=== PATIENT | male | born 1970 | race Caucasian/White ===

== ENCOUNTER 2018-12-26 09:41 | Inpatient (IN) | payer OTHER ==
[~2018-12-26] VITALS: Ht 185.4 cm; Wt 120.0 kg
[~2018-12-26 09:41] MED LIST: METH10TA2 PO
[2018-12-26 09:43] VITALS: Ht 185.4 cm; Wt 120.0 kg
--- NOTE | 2018-12-26 10:26 | ERD ---
ER Documentation Chief Complaint Chief Complaint SENT BY DR ANTOINE ORTHO FOR ADMISSION HPI Patient sent in by orthopedic Dr. Stephenson for admission for ORIF of right elbow after patient fell off a ladder and fractured it. Patient has been ambulatory with no altered mental status no bowel or bladder incontinence and pain has been controlled. Patient is already splinted and Dr. Stephenson's office. ROS All systems reviewed and are negative except as per history of present illness. PMhx/Soc Medical and Surgical Hx: pt denies Medical Hx, pt denies Surgical Hx Physical Exam Vitals Vital Signs Date Temp Pulse Resp B/P (MAP) Pulse Ox O2 O2 Flow FiO2 Time Delivery Rate 12/26/18 98.1 80 18 154/67 99 09:43 (96) Physical Exam Const: No acute distress Head: Atraumatic Eyes: Normal Conjunctiva ENT: Normal External Ears, Nose and Mouth. Neck: Full range of motion. No meningismus. Resp: Clear to auscultation bilaterally Cardio: Regular rate and rhythm, no murmurs Abd: Soft, non tender, non distended. Normal bowel sounds Skin: No petechiae or rashes Back: No midline or flank tenderness Ext: No cyanosis, or edema. Right upper extremity splinted in sugar tong cap Refill less than 2 seconds, moving all fingers Neur: Awake and alert Psych: Normal Mood and Affect Procedures/MDM Patient with fracture splinted in sugar tong neurovascularly intact will admit to Dr. Stephenson for ORIF. Patient is imminently stable no other acute issues. Departure Diagnosis: Primary Impression: Injury of upper extremity Condition: Stable CLAUDETTE GUTIERREZ MD Dec 26, 2018 10:26
[2018-12-26] MEDS ORDERED: SENNA/DOCUSATE NA (8.6MG/50MG) TAB PO PRN (10:30)
[2018-12-26] MEDS ORDERED: DOCUSATE SODIUM 100 MG CAP PO ONE (10:30)
[2018-12-26] MEDS ORDERED: MAGNESIUM HYDROXIDE 30ML CUP PO PRN (10:30)
[2018-12-26] MEDS ORDERED: DIPHENHYDRAMINE 50 MG INJ IV PRN (10:30)
[2018-12-26] MEDS ORDERED: NA PHOSPHATE/BIPHOS 133 ML ENEMA PR PRN (10:30)
[2018-12-26] MEDS ORDERED: BISACODYL 10 MG SUPP PR PRN (10:30)
[2018-12-26] MEDS ORDERED: NALOXONE (0.4 MG/ML) INJ IV PRN (10:30)
[2018-12-26] MEDS ORDERED: NACL 0.9% 3 ML SYG IV SCH (10:30)
--- NOTE | 2018-12-26 11:30 | HP ---
Date/Time of Note Date/Time of Note DATE: 12/26/18 TIME: 11:23 Assessment/Plan VTE Prophylaxis Pharmacological prophylaxis: NA/contraindicated Pharm contraindication: low risk/ambulating Lines/Catheters IV Catheter Type (from Nrs): Saline Lock Assessment/Plan Assessment/Plan 48-year-old male with right olecranon fracture x1 week. Given that this is intra-articular my recommendation to the patient is to undergo open reduction internal fixation as nonoperative treatment would require significant immobilization resulting in stiffness and long-term disability of the right upper extremity. Reviewed the benefits and risks with the patient including but not limited to medical comp occasions, anesthetic complications, bleeding, infection, malunion, nonunion, hardware failure, neurovascular injury, tendon and muscle injury, need to remove hardware, need for revision surgery. He understood these and wished to proceed with surgery. Admit to the hospital for preoperative optimization and clearance Patient is scheduled Friday at 7:30 for open reduction internal fixation of the right olecranon fracture Nonweightbearing right upper extremity Sling to right upper extremity Pain control N.p.o. at midnight HPI/ROS Admit Date/Time Admit Date/Time Hx of Present Illness 48-year-old male who fell 1 week ago 8 feet from a ladder and sustained a isolated injury to his right elbow. He was found to have a right olecranon fracture. He was seen in another ED about a week ago placed in a splint. He is now here for admission for planning open reduction internal fixation of his right olecranon fracture. Denies numbness and tingling. Denies pain elsewhere. Denies previous injury to this elbow. 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 PMH/Family/Social Past Medical History Medical History: no pertinent history Medications Current Medications Pantoprazole (Protonix Tab) 40 mg DAILY@06 PO ; Start 12/27/18 at 06:00; Status UNV Docusate Sodium (Colace) 200 mg ONCE ONCE PO ; Start 12/26/18 at 10:30; Stop 12/26/18 at 10:31; Status UNV Docusate Sodium (Colace) 200 mg BID PO ; Start 12/27/18 at 09:00; Stop 12/29/18 at 21:01; Status UNV Simethicone (Mylicon) 80 mg TID PRN PO .GAS; Start 12/26/18 at 10:30; Status UNV Senna/Docusate Sodium (Senokot-S) 2 tab BID PRN PO .CONSTIPATION; Start 12/26/18 at 10:30; Status UNV Magnesium Hydroxide (Milk Of Mag) 30 ml HS PRN PO .CONSTIPATION; Start 12/26/18 at 10:30; Status UNV Bisacodyl (Dulcolax Supp) 10 mg DAILY PRN [place] .CONSTIPATION; Start 12/26/18 at 10:30; Status UNV Sodium Biphosphate/ Sodium Phosphate (Fleet Enema) 133 ml DAILY PRN [place] .CONSTIPATION; Start 12/26/18 at 10:30; Status UNV Diphenhydramine HCl (Benadryl) 25 mg Q4H PRN IV .ITCHING; Start 12/26/18 at 10:30; Status UNV Naloxone HCl (Narcan) 0.2 mg Q2M PRN IV .RESP RATE; Start 12/26/18 at 10:30; Status UNV IV Flush (NS 3 ml) 3 ml per protocol IV ; Start 12/26/18 at 10:30; Status UNV Potassium Chloride/Dextrose/ Sod Cl 1,000 ml @ 100 mls/hr Q10H IV ; Start 12/27/18 at 00:00; Status UNV Coded Allergies: No Known Allergy (Unverified , 12/26/18) Past Surgical History Past Surgical Hx: noncontributory Social History Smoking Status: Current every day smoker (1-2 cig/day) Drug Use: none Exam/Review of Systems Vital Signs Vitals Vital Signs Date Temp Pulse Resp B/P (MAP) Pulse Ox O2 O2 Flow FiO2 Time Delivery Rate 12/26/18 98.1 80 18 154/67 99 09:43 (96) Exam Exam General: Awake, alert, in no acute distress, pleasant and cooperative Heart: regular rhythm Lungs: breathing comfortably, no tachypnea or dyspnea MUSCULOSKELETAL: Right upper extremity: Posterior slab splint removed. Skin intact. There is swelling and mild ecchymosis about the elbow. There is tenderness palpation over the olecranon. There is no tenderness palpation along the shoulder humerus forearm wrist or hand. Sensation intact to light touch in a median, ulnar, radial, and axillary distribution. Motor is intact in a median, ulnar, radial, anterior interosseous, and posterior interosseous nerve distribution. Radial and ulnar artery are +2. Wrist extension and flexion are intact. Compartments are soft. Additional Comments Outside x-rays of the right elbow were reviewed. These are dated 12/25/2018. 3 views of the right elbow demonstrate acute fracture of the olecranon. The fracture is intra-articular. Relatively good congruency of the joint. The joint is reduced. Mild comminution GALO OROZCO MD Dec 26, 2018 11:30
[2018-12-26 12:22] VITALS: BP 139/75; PULSE 58; RESP 20
[2018-12-26] MEDS: HYDROCODONE/APAP (5/325) TAB PO PRN ×2 (12:41→18:05)
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
[2018-12-26] MEDS ORDERED: HYDROCODONE/APAP (10/325) TAB PO PRN (13:30)
[2018-12-26] MEDS ORDERED: morphine 2 MG INJ IV PRN (14:00)
[2018-12-26] MEDS: KETOROLAC 15 MG INJ IV PRN (16:14)
[2018-12-26 19:25] VITALS: BP 147/91; PULSE 71; RESP 18
[2018-12-27] VITALS (18 sets, daily range): BP systolic 123–156; BP diastolic 65–84; PULSE 56–90; RESP 12–21
[2018-12-27] MEDS: D5W-0.45 NACL + KCL 20 MEQ 1,000 ML IV SCH ×2 (01:04→10:00)
[2018-12-27] MEDS: PANTOPRAZOLE (EC) 40 MG TAB PO SCH (05:28)
--- NOTE | 2018-12-27 07:25 | HPN ---
Date/Time of Note Date/Time of Note DATE: 12/27/18 TIME: 07:24 Interval H&P Admission Note Pt. seen H&P reviewed: No system changes Patient denies fever, chills, shortness of breath, chest pain, nausea/vomiting, constipation, diarrhea, numbness, and tingling. MUSCULOSKELETAL: Right upper extremity: Skin intact Sensation intact to light touch in a median, ulnar, radial, and axillary distribution. Motor is intact in a median, ulnar, radial, anterior interosseous, and posterior interosseous nerve distribution. Radial and ulnar artery are +2. Wrist extension and flexion are intact. Compartments are soft. GALO OROZCO MD Dec 27, 2018 07:25
--- NOTE | 2018-12-27 07:31 | PREAC ---
Date/Time of Note Date/Time of Note DATE: 12/27/18 TIME: 07:30 Anesthesia Eval and Record Evaluation Time Pre-Procedure Interview DATE: 12/27/18 TIME: 07:15 Age 48 Sex male NPO: 8 hrs Preoperative diagnosis left elbow fracture Planned procedure orif left elbow fx Past Medical History Past Medical History: None Surgery & Anesthesia Issues No known issue Meds Anticoagulation: No Beta Odalys within 24 hr: No Reason Beta Odalys not given: Pt. not on B-Odalys Reported Medications Methadone Hcl* (Methadone*) 10 Mg Tab, 10 MG PO DAILY, TAB 12/26/18 Current Medications Pantoprazole (Protonix Tab) 40 mg DAILY@06 PO Last administered on 12/27/18at 05:28; Admin Dose 40 MG; Start 12/27/18 at 06:00 Docusate Sodium (Colace) 200 mg BID PO ; Start 12/27/18 at 09:00; Stop 12/29/18 at 21:01 Simethicone (Mylicon) 80 mg TID PRN PO .GAS; Start 12/26/18 at 10:30 Senna/Docusate Sodium (Senokot-S) 2 tab BID PRN PO .CONSTIPATION; Start 12/26/18 at 10:30 Magnesium Hydroxide (Milk Of Mag) 30 ml HS PRN PO .CONSTIPATION; Start 12/26/18 at 10:30 Bisacodyl (Dulcolax Supp) 10 mg DAILY PRN [place] .CONSTIPATION; Start 12/26/18 at 10:30 Sodium Biphosphate/ Sodium Phosphate (Fleet Enema) 133 ml DAILY PRN [place] .CONSTIPATION; Start 12/26/18 at 10:30 Diphenhydramine HCl (Benadryl) 25 mg Q4H PRN IV .ITCHING; Start 12/26/18 at 10:30 Naloxone HCl (Narcan) 0.2 mg Q2M PRN IV .RESP RATE; Start 12/26/18 at 10:30 IV Flush (NS 3 ml) 3 ml per protocol IV ; Start 12/26/18 at 10:30 Potassium Chloride/Dextrose/ Sod Cl 1,000 ml @ 100 mls/hr Q10H IV Last administered on 12/27/18at 01:04; Admin Dose 100 MLS/HR; Start 12/27/18 at 00:00 Acetaminophen/ Hydrocodone Bitart ([place] (5/325)) 1 tab Q4H PRN PO MODERATE PAIN LEVEL 4-6 Last administered on 12/26/18at 18:05; Admin Dose 1 TAB; Start 12/26/18 at 12:35 Ketorolac Tromethamine (Toradol) 15 mg Q6H PRN IV MILD PAIN LEVEL 1-3 Last administered on 12/26/18at 16:14; Admin Dose 15 MG; Start 12/26/18 at 13:30; Stop 12/29/18 at 13:29 Acetaminophen/ Hydrocodone Bitart ([place] (10325)) 1 tab Q4H PRN PO SEVERE PAIN LEVEL 7-10 Last administered on 12/27/18at 01:06; Admin Dose 1 TAB; Start 12/26/18 at 13:30 Morphine Sulfate (morphine) 2 mg Q4H PRN IV SEVERE PAIN LEVEL 7-10; Start 12/26/18 at 14:00 Meds reviewed: Yes Allergies Coded Allergies: No Known Allergy (Unverified , 12/26/18) Allergies Reviewed: Yes Labs/Studies Labs Reviewed: Reviewed by anesthesiologist Result Diagram: 12/27/18 0458 12/27/18 0458 Laboratory Tests 12/27/18 04:58 test: N/A Pre-procedure Exam Last vitals Vital Signs Date Temp Pulse Resp B/P (MAP) Pulse Ox O2 O2 Flow FiO2 Time Delivery Rate 12/27/18 98.2 59 14 156/71 97 Room Air 07:13 (99) Airway: Adequate mouth opening, Adequate thyromental dist Mallampati: Mallampati II Teeth: Normal Lung: Normal Heart: Normal ASA Physical Status ASA physical status: 1 Emergency: None Planned Anesthetic General/MAC: LMA Nerve block: Brachial plexus (left) Planned Pain Management Single shot nerve block, Parenteral pain med Pre-operative Attestations Prior to commencing anesthesia and surgery, the patient was re-evaluated, there was verification of: *The patient's identity *The results of appropriate recent lab work and preoperative vital signs *The above evaluation not changing prior to induction *Anesthetic plan, risk benefits, alternative and complications discussed with patient/family; questions answered; patient/family understands, accepts and wishes to proceed. JOSE ANTONIO RIOS Dec 27, 2018 07:31
[2018-12-27] MEDS ORDERED: BUPIVACAINE 0.5% (SDV) 30 ML INJ ONE (07:41)
[2018-12-27] MEDS: DOCUSATE SODIUM 100 MG CAP PO SCH ×2 (07:49→19:45)
[2018-12-27] MEDS ORDERED: ROCURONIUM 50 MG INJ ONE (08:21)
[2018-12-27] MEDS ORDERED: LIDOCAINE 2% (SDV) 5 ML INJ ONE (08:21)
[2018-12-27] MEDS ORDERED: ONDANSETRON 4 MG INJ ONE (08:22)
[2018-12-27] MEDS ORDERED: DEXAMETHASONE 4 MG/ML 5 ML INJ ONE (08:22)
[2018-12-27] MEDS ORDERED: PROPOFOL 20 ML ONE (08:22)
[2018-12-27] MEDS ORDERED: CEFAZOLIN 1 GM INJ ONE (08:22)
[2018-12-27] MEDS ORDERED: KETOROLAC 30 MG INJ ONE (12:43)
[2018-12-27] MEDS ORDERED: NEOSTIGMINE 3 MG/3 ML SYRINGE ONE (13:00)
[2018-12-27] MEDS ORDERED: GLYCOPYRROLATE 0.4 MG INJ ONE (13:00)
[2018-12-27] MEDS ORDERED: FENTAnyl 50 MCG/ML VIAL ONE (13:20)
--- NOTE | 2018-12-27 13:21 | PAC ---
Date/Time of Note Date/Time of Note DATE: 12/27/18 TIME: 13:21 Post-Anesthesia Notes Post-Anesthesia Note Last documented vital signs Vital Signs Date Temp Pulse Resp B/P (MAP) Pulse Ox O2 O2 Flow FiO2 Time Delivery Rate 12/27/18 98.2 59 14 156/71 97 Room Air 1312 (99) Activity: WNL Respiratory function: WNL Cardiovascular function: WNL Mental status: Baseline Pain reasonably controlled: Yes Hydration appropriate: Yes Nausea/Vomiting absent: Yes JOSE ANTONIO RIOS Dec 27, 2018 13:21
[2018-12-27] MEDS ORDERED: DIPHENHYDRAMINE 50 MG INJ IV PRN (13:30)
[2018-12-27] MEDS ORDERED: MIDAZOLAM 1 MG/ML 2 ML INJ IV PRN (13:30)
[2018-12-27] MEDS ORDERED: oxyCODONE 15 MG TAB PO PRN (13:30)
[2018-12-27] MEDS ORDERED: ACETAMINOPHEN 500 MG TAB PO PRN (13:30)
[2018-12-27] MEDS ORDERED: oxyCODONE 5 MG TAB PO PRN ×2 (13:30)
[2018-12-27] MEDS ORDERED: HYDROmorphONE 1 MG/ML SYG IV PRN (13:30)
[2018-12-27] MEDS ORDERED: EPHEDrine 25 MG/5 ML SYG IV PRN (13:30)
[2018-12-27] MEDS ORDERED: LABETALOL HCL 20MG INJ IV PRN (13:30)
[2018-12-27] MEDS ORDERED: HYDROmorphONE 1 MG/5 ML IV SYRINGE IV PRN ×3 (13:30)
[2018-12-27] MEDS ORDERED: KETOROLAC 30 MG INJ IV PRN (13:30)
[2018-12-27] MEDS ORDERED: ONDANSETRON 4 MG INJ IV PRN (13:30)
[2018-12-27] MEDS ORDERED: CEFAZOLIN 2 GM/50 ML (PMX) 50 ML IVPB ONE ×2 (13:30→13:32)
[2018-12-27] MEDS ORDERED: FENTAnyl 50 MCG/ML VIAL IV PRN ×3 (13:30)
[2018-12-27] MEDS ORDERED: OXYCODONE/ACETAMINOPHEN (5/325) TAB PO PRN ×2 (13:30)
[2018-12-27] MEDS ORDERED: hydrALAzine 20 MG INJ IV PRN (13:30)
[2018-12-27] MEDS ORDERED: ALBUTEROL 0.083% (NEB) 2.5 MG/3 ML AMP HHN PRN (13:30)
[2018-12-27] MEDS ORDERED: MEPERIDINE 25 MG INJ IV PRN (13:30)
[2018-12-27] MEDS ORDERED: POLYMYXIN/BACITRACIN 1L IRRIG ONE (14:00)
--- NOTE | 2018-12-27 14:57 | OPR ---
Date/Time of Note Date/Time of Note DATE: 12/27/18 TIME: 14:28 Operative Report Procedure Date: Dec 27, 2018 Preoperative Diagnosis Right intra-articular olecranon fracture Postoperative Diagnosis As above Operation/Procedure Performed Open reduction and tension band of right olecranon fracture Open reduction internal fixation with plates and screws of right olecranon fr acture Intraoperative use of fluoroscopy Long-arm plaster splint. 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 He fell from a height about 8 feet. He fell directly onto his right elbow. He sustained an acute intra-articular olecranon fracture. He was seen in the office on Friday. He is neurovascular intact. I discussed with the patient operative and nonoperative treatment options. The fracture was intra-articular and is minimally displaced. However nonoperative treatment would require him to be immobilized for extended period time resulting in significant stiffness. Therefore I did recommend open reduction internal fixation of the fracture with the patient. I did discuss with the patient that even undergoing open reduction internal fixation there is a high risk of stiffness and he may not gain full range of motion back. I also discussed that he is at risk for traumatic arthritis in the future. Reviewed the benefits and risks. Benefits include articular congruency, early mobilization. Risks include but not limited to medical complications, anesthetic applications, card iopulmonary complications, nonunion, malunion, hardware failure, need to remove hardware, stiffness, neurovascular injury, triceps tendon rupture, and need for further surgery. He wished to proceed with surgery. Procedure detail: Patient was brought to the operating room. He was transferred to the hospital bed to the operating table supine position. He was then administered general anesthesia and given a right upper extremity nerve block. At this time he was placed in a lateral position with all bony prominences well-padded. Axillary roll was placed. The beanbag was used to hold it in position. The right upper extremity was placed over a bolster. The right upper extremity was then prepped and draped in normal sterile fashion. A timeout was performed confirming patient's name, medical record number, diagnosis, procedure to be performed, and laterality procedure. Once this was done we proceeded to begin the surgery. A longitudinal incision along the posterior aspect of the distal humerus and along the posterior aspect of the ulna was made. The incision was curved laterally around the olecranon. Sharp dissection was used through the subcutaneous tissue down to the level of the tendon and the subcutaneous ulna. Once the exposure was complete the fracture was identified. The fracture ends were cleaned with a 15 blade to better get a cortical read. At this time the fracture was mobilized and hematoma was cleaned out. It was recognized this time that the fracture was infected comminuted and the piece currently mobilized was only superficial dorsal fracture. The intra-articular component was deeper and severely impacted into the joint. A freer was used to disimpact the articular surface and to mobilize that fragment. After significant effort the fracture was disimpacted and mobilized and a jsgwz-[id number] clamp and a Villafana clamp was used to hold and reduce the fracture. This was checked under fluoroscopy on both AP lateral and obliques. The articular surface was well reduced. Secondary to the dorsal comminution a tension band a low was not appropriate as if that dorsal comminution displaced the tension band would no longer be effective. Therefore it was chosen use a plate. However at this time it was discovered that the plates were in fact not sterile and could therefore not be used as require 3 hours of processing since these were implants. At this time elected to open up a Synthes one third tubular small frag tray. Unfortunately these plates cannot be put into compression mode. Therefore was e lected to perform a [id number]-[id number] tension band to create compression across the fracture site supplemented by a one third tubular plate dorsally to prevent displacement of the comminuted fracture. The one third tubular plate was placed along the olecranon first in order to contour the plate. Using the plate as a template to 6.5 mm K wires were placed proximal to distal from the olecranon to the anterior cortex of the ulna. The radial pin did achieve bicortical purchase. The ulnar pin did not as it was skiving off the anterior cortex. Fracture reduction was again confirmed under fluoroscopy. A 2.0 drill was used in the proximal ulnar shaft drilling from radial to ulnarly distal to the fracture site. A double 22-gauge stainless steel cerclage wire was passed through this drill hole. The cerclage wire was then placed in a uygbhv-hf-aytgt fashion around the K wires. These K wires were then curved that and cut. The [id number]-[id number] tension band was then tightened with the wire tighteners. The wire tightened nicely. The fracture was compressed and remained reduced. Attempts were made to impact the curved K wire into the olecranon to prevent prominence from the K wire. This was used to Janay bone tamp. However the K wire would not sit into the bone. Therefore it was bent to make this as flush as possible with the soft tissue to prevent irritation. At this time the previously contoured 130 where plate was placed over the tension band between the K wires. A 2.5 drill bit was used under fluoroscopy th rough the most proximal hole in the plate to ensure that the drill was stayed extra-articular. Once this was done a 60 mm 4.0 cancellus screw was placed. There was good compression of the plate to the bone. At this time attention turned towards the distal aspect of the plate. The 3 holes distal to the fracture site were then utilized. Appropriate drill was used followed by use of the depth gauge. Appropriately sized screws were placed. Of note the middle screw was placed as a locking screw. The most distal screw hole was not utilized. Fluoroscopy was then used to confirm that the fracture remained well reduced and that the fixation was good. Live fluoroscopy was then used to test for stability. The elbow was stable throughout range of motion in pronation and supination. The wound was copiously irrigated. The longitudinal incision through the distal triceps tendon was then repaired with #1 Vicryl sutures in [id number] fashion. The subcutaneous tissue was closed with 0 Vicryl followed by 2-0 Vicryl followed by vertical mattress 2-0 nylon sutures. The incision was then covered with Mepilex AG. The arm was then wrapped with soft roll followed by a posterior slab splint with the arm in neutral and 90 degrees of flexion followed by more soft roll and Maurice wrap. All counts were correct x2. Disposition: Patient was extubated and transferred to PACU in stable condition. He will be nonweightbearing on the right upper extremity. His splint will remain in place for about 2 to 3 days. After that the patient can self discontinue the splint while keeping the dressing in place. He is to start gentle range of motion of his elbow including flexion, extension, pronation, supination. If the patient continues to be doing well he can be discharged home this evening. I will see him in clinic in 2 weeks. GALO OROZCO MD Dec 27, 2018 14:56
--- NOTE | 2018-12-27 16:39 | PN ---
Date/Time of Note Date/Time of Note DATE: 12/27/18 TIME: 16:36 Assessment/Plan VTE Prophylaxis Risk score (from Ns)>0 risk: 1 SCD applied (from Ns): Yes SCD contraindicated: other Pharmacological prophylaxis: other Lines/Catheters IV Catheter Type (from [facility]): Peripheral IV Urinary Cath still in place: No Assessment/Plan Hospital Course A/P RT ELBOW ORIF ANEMIA PLAN PAIN MEDS Result Diagram: 12/27/18 0458 12/27/18 0458 Results 24hrs Laboratory Tests Test 12/27/18 04:58 White Blood Count 5.4 # Red Blood Count 3.79 L Hemoglobin 11.3 L Hematocrit 33.8 L Mean Corpuscular Volume 89.2 Mean Corpuscular Hemoglobin 29.8 Mean Corpuscular Hemoglobin Concent 33.4 Red Cell Distribution Width 13.2 Platelet Count 213 Mean Platelet Volume 10.0 Immature Granulocytes % 0.400 Neutrophils % 47.0 Lymphocytes % 41.8 Monocytes % 8.9 Eosinophils % 1.7 Basophils % 0.2 Nucleated Red Blood Cells % 0.0 Immature Granulocytes # 0.020 Neutrophils # 2.5 Lymphocytes # 2.3 Monocytes # 0.5 Eosinophils # 0.1 Basophils # 0.0 Nucleated Red Blood Cells # 0.0 Prothrombin Time 14.8 Prothrombin Time Ratio 1.2 INR International Normalized Ratio 1.15 Sodium Level 139 Potassium Level 4.3 Chloride Level 101 Carbon Dioxide Level 30 Anion Gap 8 Blood Urea Nitrogen 15 Creatinine 0.80 Est Glomerular Filtrat Rate mL/min > 60 Glucose Level 118 Calcium Level 8.9 Subjective 24 Hr Interval Summary Subjective hx not possible: other (pain rt elbow) Eyes: no complaints ENT: no complaints Respiratory: no complaints Cardiovascular: no complaints Gastrointestinal: no complaints Genitourinary: no complaints Musculoskeletal: bone/joint pain (+), restricted range of motion Skin: no complaints Neurologic: no complaints Exam/Review of Systems Exam Vitals Vital Signs Date Temp Pulse Resp B/P (MAP) Pulse Ox O2 O2 Flow FiO2 Time Delivery Rate 12/27/18 76 15 148/80 97 Nasal 2.0 14:07 (102) Cannula 12/27/18 98.0 13:14 Intake and Output 12/26/18 12/26/18 12/27/18 1515:00 23:00 07:00 IntakeIntake Total 400 ml BalanceBalance 400 ml Constitutional: alert, oriented Psych: no complaints, nl mood/affect Head: normocephalic Eyes: nl conjunctiva, EOMI Neck: supple Respiratory: clear to auscultation Cardiovascular: regular rate and rhythm Gastrointestinal: soft, bowel sounds (+) Musculoskeletal: other (rt arm dressing+) Results Results 24hrs Laboratory Tests Test 12/27/18 04:58 White Blood Count 5.4 # Red Blood Count 3.79 L Hemoglobin 11.3 L Hematocrit 33.8 L Mean Corpuscular Volume 89.2 Mean Corpuscular Hemoglobin 29.8 Mean Corpuscular Hemoglobin Concent 33.4 Red Cell Distribution Width 13.2 Platelet Count 213 Mean Platelet Volume 10.0 Immature Granulocytes % 0.400 Neutrophils % 47.0 Lymphocytes % 41.8 Monocytes % 8.9 Eosinophils % 1.7 Basophils % 0.2 Nucleated Red Blood Cells % 0.0 Immature Granulocytes # 0.020 Neutrophils # 2.5 Lymphocytes # 2.3 Monocytes # 0.5 Eosinophils # 0.1 Basophils # 0.0 Nucleated Red Blood Cells # 0.0 Prothrombin Time 14.8 Prothrombin Time Ratio 1.2 INR International Normalized Ratio 1.15 Sodium Level 139 Potassium Level 4.3 Chloride Level 101 Carbon Dioxide Level 30 Anion Gap 8 Blood Urea Nitrogen 15 Creatinine 0.80 Est Glomerular Filtrat Rate mL/min > 60 Glucose Level 118 Calcium Level 8.9 Medications Medication Current Medications Pantoprazole (Protonix Tab) 40 mg DAILY@06 PO Last administered on 12/27/18at 05:28; Admin Dose 40 MG; Start 12/27/18 at 06:00 Docusate Sodium (Colace) 200 mg BID PO ; Start 12/27/18 at 09:00; Stop 12/29/18 at 21:01 Simethicone (Mylicon) 80 mg TID PRN PO .GAS; Start 12/26/18 at 10:30 Senna/Docusate Sodium (Senokot-S) 2 tab BID PRN PO .CONSTIPATION; Start 12/26/18 at 10:30 Magnesium Hydroxide (Milk Of Mag) 30 ml HS PRN PO .CONSTIPATION; Start 12/26/18 at 10:30 Bisacodyl (Dulcolax Supp) 10 mg DAILY PRN MA .CONSTIPATION; Start 12/26/18 at 10:30 Sodium Biphosphate/ Sodium Phosphate (Fleet Enema) 133 ml DAILY PRN MA .CONSTIPATION; Start 12/26/18 at 10:30 Diphenhydramine HCl (Benadryl) 25 mg Q4H PRN IV .ITCHING; Start 12/26/18 at 10:30 Naloxone HCl (Narcan) 0.2 mg Q2M PRN IV .RESP RATE; Start 12/26/18 at 10:30 IV Flush (NS 3 ml) 3 ml per protocol IV ; Start 12/26/18 at 10:30 Potassium Chloride/Dextrose/ Sod Cl 1,000 ml @ 100 mls/hr Q10H IV Last administered on 12/27/18at 01:04; Admin Dose 100 MLS/HR; Start 12/27/18 at 00:00 Acetaminophen/ Hydrocodone Bitart (Wellington (5/325)) 1 tab Q4H PRN PO MODERATE PAIN LEVEL 4-6 Last administered on 12/26/18at 18:05; Admin Dose 1 TAB; Start 12/26/18 at 12:35 Ketorolac Tromethamine (Toradol) 15 mg Q6H PRN IV MILD PAIN LEVEL 1-3 Last administered on 12/26/18at 16:14; Admin Dose 15 MG; Start 12/26/18 at 13:30; Stop 12/29/18 at 13:29 Acetaminophen/ Hydrocodone Bitart (Wellington (10/325)) 1 tab Q4H PRN PO SEVERE PAIN LEVEL 7-10 Last administered on 12/27/18at 01:06; Admin Dose 1 TAB; Start 12/26/18 at 13:30 Morphine Sulfate (morphine) 2 mg Q4H PRN IV SEVERE PAIN LEVEL 7-10; Start 12/26/18 at 14:00 Hydromorphone HCl (Dilaudid) 0.2 mg PACU PRN IV MILD PAIN 1-3; Start 12/27/18 at 13:30; Stop 12/27/18 at 17:30 Hydromorphone HCl (Dilaudid) 0.4 mg PACU PRN IV MOD PAIN 4-6; Start 12/27/18 at 13:30; Stop 12/27/18 at 17:30 Hydromorphone HCl (Dilaudid) 0.6 mg PACU PRN IV SEVERE PAIN 7-10; Start 12/27/18 at 13:30; Stop 12/27/18 at 17:30 Fentanyl (Sublimaze) 25 mcg PACU ORDER PRN IV MILD PAIN 1-3 Last administered on 12/27/18at 13:39; Admin Dose 25 MCG; Start 12/27/18 at 13:30; Stop 12/27/18 at 17:30 Fentanyl (Sublimaze) 50 mcg PACU ORDER PRN IV MOD PAIN 4-6; Start 12/27/18 at 13:30; Stop 12/27/18 at 17:30 Fentanyl (Sublimaze) 75 mcg PACU ORDER PRN IV SEVERE PAIN 7-10 Last administered on 12/27/18at 13:32; Admin Dose 75 MCG; Start 12/27/18 at 13:30; Stop 12/27/18 at 17:30 Ketorolac Tromethamine (Toradol) 30 mg PACU ORDER PRN IV FOR PAIN AFTER IV CHIQUITA COTIC MED; Start 12/27/18 at 13:30; Stop 12/27/18 at 17:30 Oxycodone/ Acetaminophen (Percocet (5/ 325)) 1 tab PACU ORDER PRN PO .PAIN 1-5; Start 12/27/18 at 13:30; Stop 12/27/18 at 17:30 Oxycodone/ Acetaminophen (Percocet (5/ 325)) 2 tab PACU ORDER PRN PO .PAIN 6-10; Start 12/27/18 at 13:30; Stop 12/27/18 at 17:30 Ondansetron HCl (Zofran Inj) 4 mg PACU ORDER PRN IV NAUSEA/VOMITING; Start 12/27/18 at 13:30; Stop 12/27/18 at 17:30 Labetalol HCl (Labetalol) 5 mg PACU ORDER PRN IV HIGH BLOOD PRESSURE; Start 12/27/18 at 13:30; Stop 12/27/18 at 17:30 Hydralazine HCl (Apresoline) 5 mg PACU ORDER PRN IV HIGH BLOOD PRESSURE; Start 12/27/18 at 13:30; Stop 12/27/18 at 17:30 Ephedrine Sulfate 5 mg PACU ORDER PRN IV BLOOD PRESSURE SUPPORT; Start 12/27/18 at 13:30; Stop 12/27/18 at 17:30 Albuterol (Proventil 0.083% (Neb)) 2.5 mg PACU ORDER PRN HHN .WHEEZING; Start 12/27/18 at 13:30; Stop 12/27/18 at 17:30 Meperidine HCl (Demerol) 25 mg PACU ORDER PRN IV .RIGORS; Start 12/27/18 at 13:30; Stop 12/27/18 at 17:30 Diphenhydramine HCl (Benadryl) 25 mg PACU ORDER PRN IV .PRURITUS; Start 12/27/18 at 13:30; Stop 12/27/18 at 17:30 Midazolam HCl (Versed) 0.5 mg PACU ORDER PRN IV .ANXIETY; Start 12/27/18 at 13:30; Stop 12/27/18 at 17:30 Cefazolin Sodium/ Dextrose 50 ml @ 100 mls/hr Q8 IVPB ; Start 12/27/18 at 22:00; Stop 12/28/18 at 06:29 Acetaminophen (Tylenol Tab) 1,000 mg Q8H PRN PO MILD PAIN(1-3)OR ELEVATED TEMP; Start 12/27/18 at 13:30 Oxycodone HCl (Roxicodone) 5 mg Q4H PRN PO MODERATE PAIN LEVEL 4-6; Start 12/27/18 at 13:30 Oxycodone HCl (Roxicodone) 10 mg Q4H PRN PO MODERATE PAIN LEVEL 7-8; Start 12/27/18 at 13:30 Oxycodone HCl (Roxicodone) 15 mg Q4H PRN PO SEVERE PAIN LEVEL 9-10; Start 12/27/18 at 13:30 Hydromorphone HCl (Dilaudid) 1 mg Q3H PRN IV BREAKTHROUGH PAIN; Start 12/27/18 at 13:30 KEVIN CASE MD Dec 27, 2018 16:39
[2018-12-27] MEDS: KETOROLAC 15 MG INJ IV PRN (19:45)
[2018-12-27] MEDS: CEFAZOLIN 2 GM/50 ML (PMX) 50 ML IVPB SCH (21:15)
[2018-12-28] MEDS: KETOROLAC 15 MG INJ IV PRN (02:26)
[2018-12-28 02:32] VITALS: BP 106/63; PULSE 63; RESP 19
[2018-12-28] MEDS: PANTOPRAZOLE (EC) 40 MG TAB PO SCH (05:29)
[2018-12-28] MEDS: CEFAZOLIN 2 GM/50 ML (PMX) 50 ML IVPB SCH (05:30)
[2018-12-28 07:12] VITALS: BP 123/57; PULSE 87; RESP 16
[2018-12-28] MEDS: DOCUSATE SODIUM 100 MG CAP PO SCH (09:00)
--- NOTE | 2018-12-28 14:12 | DS ---
Date/Time of Note Date/Time of Note DATE: 12/28/18 TIME: 14:10 Discharge Summary Admission/Discharge Info Admit Date/Time Dec 26, 2018 at 10:27 Discharge Date/Time Dec 28, 2018 at 09:15 Patient Condition: Good Hx of Present Illness 48-year-old male who fell 1 week ago 8 feet from a ladder and sustained a isolated injury to his right elbow. He was found to have a right olecranon fracture. He was seen in another ED about a week ago placed in a splint. He is POD#1 s/p ORIF of right olecranon fracture. Patient pain is well controlled. Tolerating diet. Hospital Course Patient to be DCed home today. NWClementina TESFAYE. He is to discontinue the splint himself in ~3 days and start gentle ROM of the elbow. Otherwise he should be in a sling. Patient to follow up in 2 weeks. Home Meds Reported Medications Methadone Hcl* (Methadone*) 10 Mg Tab, 10 MG PO DAILY, TAB 12/26/18 Primary Care Provider Care Physician No Primary Time spent on discharge: < 30 minutes Pending Labs Laboratory Tests Test 12/28/18 04:33 White Blood Count 12.3 10^3/ul (4.8-10.8) Red Blood Count 3.46 10^6/ul (4.70-6.10) Hemoglobin 10.4 g/dl (14.0-18.0) Hematocrit 31.9 % (42.0-52.0) Mean Corpuscular Volume 92.2 fl (82.0-101.0) Mean Corpuscular Hemoglobin 30.1 pg (29.0-33.0) Mean Corpuscular Hemoglobin Concent 32.6 g/dl (32.0-37.0) Red Cell Distribution Width 13.4 % (11.5-14.5) Platelet Count 246 10^3/UL (140-415) Mean Platelet Volume 9.9 fl (7.4-10.4) Immature Granulocytes % 0.500 % (0.001-0.429) Neutrophils % 85.3 % (39.0-77.0) Lymphocytes % 8.9 % (15.0-51.0) Monocytes % 5.3 % (0.0-11.0) Eosinophils % 0.0 % (0.0-7.0) Basophils % 0.0 % (0.0-2.0) Nucleated Red Blood Cells % 0.0 /100WBC (0.0-0.0) Immature Granulocytes # 0.060 10^3/ul (0.0-0.031) Neutrophils # 10.5 10^3/ul (1.6-7.5) Lymphocytes # 1.1 10^3/ul (0.8-2.9) Monocytes # 0.7 10^3/ul (0.3-0.9) Eosinophils # 0.0 10^3/ul (0.0-0.5) Basophils # 0.0 10^3/ul (0.0-0.1) Nucleated Red Blood Cells # 0.0 10^3/ul (0.0-0.0) Prothrombin Time 14.6 Sec (11.9-14.9) Prothrombin Time Ratio 1.1 INR International Normalized Ratio 1.13 Sodium Level 138 mmol/L (135-144) Potassium Level 4.9 mmol/L (3.5-5.1) Chloride Level 102 mmol/L (97-110) Carbon Dioxide Level 27 mmol/L (21-31) Anion Gap 9 (5-13) Blood Urea Nitrogen 21 mg/dl (7-20) Creatinine 0.86 mg/dl (0.61-1.24) Est Glomerular Filtrat Rate mL/min > 60 mL/min (>60) Glucose Level 135 mg/dl (70-220) Calcium Level 8.9 mg/dl (8.4-10.2) GALO OROZCO MD Dec 28, 2018 14:12
== END 2018-12-28 09:15 | disposition home or self-care (01) | DRG 512 ==
LOC: E/R 09:41 → MS1 10:27
PROVIDERS: ADMIT Orthopaedic Surgery Adult Reconstructive Orthopaedic Surgery; ATTEND Orthopaedic Surgery Adult Reconstructive Orthopaedic Surgery
PROC: 0PSK04Z Reposition Right Ulna with Internal Fixation Device, Open Approach (ICD-10-PCS; principal; 2018-12-27 07:30)
DX: S52.031A Displaced fracture of olecranon process with intraarticular extension of right ulna, initial encounter for closed fracture (principal); D64.9 Anemia, unspecified; W11.XXXA Fall on and from ladder, initial encounter; Y93.89 Activity, other specified; Y92.89 Other specified places as the place of occurrence of the external cause; Y99.8 Other external cause status
CPT/HCPCS: 36415; 71046; 80048; 80053; 83735; 85025; 85610; 85730; 93005; C1713; J0690; J1100; J1170; J1885; J2405; J2710; J3010; J3480